=== PATIENT | male | born 1950 | race Caucasian/White ===

== ENCOUNTER 2016-08-17 18:23 | Emergency (ER) | payer OTHER ==
[~2016-08-17] VITALS: Ht 165.1 cm; Wt 95.3 kg
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
--- NOTE | 2016-08-17 19:20 | RADIOLOGY REPORT ---
EXAMINATION: XR RIBS, LEFT CLINICAL INFORMATION: Trauma to the chest, pain COMPARISON: None TECHNIQUE: Frontal image of the chest and 4 oblique views of the left-sided ribs were obtained. FINDINGS: Lungs are clear. No consolidation, pneumothorax, or pleural effusion. The cardiomediastinal silhouette and pulmonary vasculature are normal. Prior CABG. There is an acute nondisplaced fracture of the anterior left ninth rib. IMPRESSION: No acute cardiopulmonary findings. Acute nondisplaced fracture of the left ninth rib.
[2016-08-17] MEDS ORDERED: LIDODERM1 EACH TOP (19:23)
[2016-08-17] MEDS ORDERED: PERCOCET 5-3251 EACH PO (19:23)
[2016-08-17 19:36] VITALS: BP 128/74
== END 2016-08-17 19:36 ==
LOC: ERH 18:23
DX: S22.32XA Fracture of one rib, left side, initial encounter for closed fracture (principal); Y04.8XXA Assault by other bodily force, initial encounter
CPT/HCPCS: 71100-LT

== ENCOUNTER 2016-08-27 10:06 | Emergency (ER) | payer OTHER ==
[~2016-08-27] VITALS: Ht 165.1 cm; Wt 94.8 kg
[~2016-08-27 10:06] MED LIST: LIDODERM1 EACH TOP; PERCOCET 5-3251 EACH PO
[2016-08-27 10:09] VITALS: BP 114/67
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
[2016-08-27] MEDS ORDERED: DALIRESP500 MC1 PO (11:15)
[2016-08-27] MEDS ORDERED: CITALOPRAM HBR10 MG PO (11:15)
[2016-08-27] MEDS ORDERED: METFORMIN HCL500 M3 PO (11:16)
[2016-08-27] MEDS ORDERED: CLOPIDOGREL75 M1 PO (11:16)
[2016-08-27] MEDS ORDERED: SPIRIVA RESPIMAT4 GM PO (11:16)
[2016-08-27] MEDS ORDERED: MONTELUKAST SOD10 M1 PO (11:16)
[2016-08-27] MEDS ORDERED: ATORVASTATIN CA80 M1 PO (11:17)
[2016-08-27] MEDS ORDERED: TAMSULOSIN HCL0.4 M1 PO (11:17)
[2016-08-27] MEDS ORDERED: JANUVIA100 M1 PO (11:17)
[2016-08-27] MEDS ORDERED: ADVAIR 250-501 EACH INH (11:17)
[2016-08-27] MEDS ORDERED: METOPROLOL TART25 M1 PO (11:17)
[2016-08-27] MEDS ORDERED: LISINOPRIL40 M1 PO (11:18)
[2016-08-27] MEDS ORDERED: KEFLEX500 M1 PO (11:32)
[2016-08-27] MEDS ORDERED: PERCOCET 5-3251 EACH PO (11:32)
[2016-08-27] MEDS ORDERED: COLCHICINE0.6 M2 PO (11:32)
--- NOTE | 2016-08-27 12:18 | RADIOLOGY REPORT ---
EXAMINATION: XR FOOT, RIGHT CLINICAL INFORMATION: Pain of first metatarsal after kicking branches. Evaluate for fracture. COMPARISON: None TECHNIQUE: Right foot, 3 views FINDINGS: Mild soft tissue swelling of the great toe without radiopaque foreign body or soft tissue emphysema. Bones have normal alignment. The Chopart and Lisfranc joints are intact. No acute fracture. Peripheral vascular calcifications are seen. There is a small intratendinous ossification/enthesophyte at the Achilles insertion. IMPRESSION: No acute osseous injury in the right foot.
== END 2016-08-27 11:45 ==
LOC: ERH 10:06
DX: M10.9 Gout, unspecified (principal); L03.115 Cellulitis of right lower limb
CPT/HCPCS: 73630-RT

== ENCOUNTER 2017-10-08 12:06 | Emergency (ER) | payer OTHER ==
[~2017-10-08] VITALS: Ht 165.1 cm; Wt 79.4 kg
[~2017-10-08 12:06] MED LIST changes: +ADVAIR 250-501 EACH INH; +ATORVASTATIN CA80 M1 PO; +CITALOPRAM HBR10 MG PO; +CLOPIDOGREL75 M1 PO; +COLCHICINE0.6 M2 PO; +COLCHICINE0.6 M3 PO; +DALIRESP500 MC1 PO; +IBUPROFEN600 M1 PO; +JANUVIA100 M1 PO; +KEFLEX500 M1 PO; +LISINOPRIL40 M1 PO; +METFORMIN HCL500 M3 PO; +METOPROLOL TART25 M1 PO; +MONTELUKAST SOD10 M1 PO; +PREDNISONE10 M2 PO; +SPIRIVA RESPIMAT4 GM PO; +TAMSULOSIN HCL0.4 M1 PO
[2017-10-08 12:09] VITALS: BP 137/68
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
[2017-10-08] MEDS ORDERED: MOBIC15 M1 PO (13:37)
== END 2017-10-08 13:47 ==
LOC: ERH 12:06
DX: S46.912A Strain of unspecified muscle, fascia and tendon at shoulder and upper arm level, left arm, initial encounter (principal); V89.2XXA Person injured in unspecified motor-vehicle accident, traffic, initial encounter
CPT/HCPCS: 73030-LT